=== PATIENT | male | born 1980 | race African-American/Black ===

== ENCOUNTER → 2019-10-10 | Emergency (ER) | payer SELFPAY ==
--- NOTE | 2019-10-10 00:56 | NUR ---
Patient no in waiting room. unable to triage
--- NOTE | 2019-10-10 01:08 | NUR ---
Patient not in waiting room, unable to triage
--- NOTE | 2019-10-10 05:56 | Emergency Room Report ---
History of Present Illness General Chief Complaint: To Be Triaged Source: Patient Present Illness HPI Is a 39-year-old male who checked in with abdominal pain. When the triage nurse called to triage him he said he can check to indicate his not here yet. He then left. I did not see this patient. Patient History Past Medical History: see triage record, old chart reviewed Reviewed Nursing Documentation: PMH: Agreed; PSxH: Agreed Medical Decision Making Diagnostic Impression: Primary Impression: Abdominal pain Status: improved Disposition: HOME, SELF-CARE Condition: Stable Jose Wren MD Oct 10, 2019 05:56
== END | disposition left against medical advice (07) ==
LOC: EMR 05:54
DX: R10.9 Unspecified abdominal pain (principal)